=== PATIENT | male | born 2005 | race Caucasian/White ===

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

== ENCOUNTER 2024-09-25 08:57 | Emergency (ER) | payer OTHER, SELFPAY ==
[~2024-09-25] VITALS: Ht 180.3 cm; Wt 84.3 kg
[~2024-09-25 08:57] MED LIST changes: +SULF200S26 PO
[2024-09-25 11:51] VITALS: BP 136/75; TEMP 96.8; O2SAT 98
[2024-09-25] MEDS: BACITRACIN OINTMENT 30GM TUBE TOP ONE (12:16)
[2024-09-25] MEDS: BOOSTRIX VACCINE (TETANUS/DIPHTH/ACEL. PERTUSSIS) 0.5ML SYR IM.IMMUN ONE (12:16)
== END 2024-09-25 12:31 | disposition home or self-care (01) ==
LOC: M ED 08:57
DX: S40.211A Abrasion of right shoulder, initial encounter (principal); W20.8XXA Other cause of strike by thrown, projected or falling object, initial encounter; Y92.89 Other specified places as the place of occurrence of the external cause; Y93.89 Activity, other specified; Y99.0 Civilian activity done for income or pay; Z23 Encounter for immunization